=== PATIENT | female | born 1945 | race American Indian/Alaskan Native ===

== ENCOUNTER 2017-11-18 08:19 | Day surgery (SDC) | payer MEDICARE, OTHER ==
[~2017-11-18] VITALS: Ht 160 cm; Wt 82.1 kg
[~2017-11-18 08:19] MED LIST: AMLO10 PO; ASPI81EC PO; ATOR10; Amaryl2 MG PO; CEPH500 PO; CHOL10002 PO; CLOP75 PO; ENOX100I SC; ERGO400 PO; ESCI20 PO; FERSU220EL; FURO20 PO; GLYB5 PO; HYDACE5 PO; INSUASPI; LOSA50 PO; LOSHYD100 PO; METF500 PO; METO25ER PO; Micro-K10 MEQ PO; OMEP20ER PO; Omeprazole20 M1; PREG100; ROSU10TA PO; TOUJEO SOL300 UNIT/1; VERA180ERA PO; WARF7.5 PO
[2017-11-18 08:32] LABS: International Normalized Ratio 1.93; Prothrombin Time Results 20.5 Sec (9.7-11.5)
== END 2017-11-18 11:36 | disposition home or self-care (01) ==
LOC: ORSCSDS 08:19
PROVIDERS: Internal Medicine Gastroenterology
PROC: 0DBN8ZX Excision of Sigmoid Colon, Via Natural or Artificial Opening Endoscopic, Diagnostic (ICD-10-PCS; principal; 2017-11-18 10:30)
PROC: 0DBM8ZX Excision of Descending Colon, Via Natural or Artificial Opening Endoscopic, Diagnostic (ICD-10-PCS; principal; 2017-11-18 10:30)
PROC: 0DBP8ZX Excision of Rectum, Via Natural or Artificial Opening Endoscopic, Diagnostic (ICD-10-PCS; principal; 2017-11-18 10:30)
DX: R19.5 Other fecal abnormalities (principal); D12.4 Benign neoplasm of descending colon; D12.8 Benign neoplasm of rectum; K63.5 Polyp of colon; K57.30 Diverticulosis of large intestine without perforation or abscess without bleeding; D50.9 Iron deficiency anemia, unspecified; I10 Essential (primary) hypertension; E11.9 Type 2 diabetes mellitus without complications; Z95.2 Presence of prosthetic heart valve; G47.33 Obstructive sleep apnea (adult) (pediatric); F17.210 Nicotine dependence, cigarettes, uncomplicated; Z79.01 Long term (current) use of anticoagulants; Z79.82 Long term (current) use of aspirin; Z79.4 Long term (current) use of insulin; Z79.899 Other long term (current) drug therapy
CPT/HCPCS: 36415; 82947; 85610; 88305; J1980; J7120

== ENCOUNTER 2018-03-13 00:13 | Day surgery (SDC) | payer MEDICARE, OTHER | END 2018-03-13 14:10 | disposition home or self-care (01) | LOC: ATC 00:13 | DX: I63.132 Cerebral infarction due to embolism of left carotid artery (principal); Z95.2 Presence of prosthetic heart valve; Z79.01 Long term (current) use of anticoagulants; E11.9 Type 2 diabetes mellitus without complications; F17.200 Nicotine dependence, unspecified, uncomplicated | CPT/HCPCS: 96372; J1650 ==

== ENCOUNTER 2018-03-14 00:19 | Day surgery (SDC) | payer MEDICARE, OTHER | END 2018-03-14 13:40 | disposition home or self-care (01) | LOC: ATC 00:19 | DX: I63.132 Cerebral infarction due to embolism of left carotid artery (principal); Z95.2 Presence of prosthetic heart valve; F17.210 Nicotine dependence, cigarettes, uncomplicated | CPT/HCPCS: 96372; J1650 ==

== ENCOUNTER 2018-03-20 00:38 | Day surgery (SDC) | payer MEDICARE, OTHER ==
[2018-03-20 15:34] LABS: Hematocrit 38.9 % (33.0-51.0); Hemoglobin 12.5 g/dL (11.5-16.0); Mean Corpuscular HGB 29.4 pg (26.0-34.0); Mean Corpuscular HGB Conc 32.1 g/dL (31.5-36.5); Mean Corpuscular Volume 92 fL (80-100); Mean Platelet Volume 11.7 fL (9.1-12.4); Platelet Count 324 K/mm3 (150-400); RDW Coefficient Variation 13.4 % (11.7-14.2); RDW Standard Deviation 45.3 fL (35.1-46.3); Red Blood Cell Count 4.25 M/mm3 (3.80-5.20); White Blood Cell Count 9.86 K/mm3 (4.00-11.30)
[2018-03-20 15:49] LABS: International Normalized Ratio 1.02; Prothrombin Time Results 10.6 Sec (9.7-11.5)
[2018-03-20 16:00] LABS: Anion Gap 5 mmol/L (6-16); Blood Urea Nitrogen 19 mg/dL (8-24); Bun/Creatinine Ratio 23.7 (12.0-20.0); CO2, Blood 29 mmol/L (21-32); Chloride, Blood 103 mmol/L (98-108); Glomerular Filtration Rate >60 (60-); Glucose, Blood 367 mg/dL (70-99); Potassium, Blood 3.9 mmol/L (3.5-5.5); Sodium, Blood 137 mmol/L (136-145)
== END 2018-03-20 14:59 | disposition home or self-care (01) ==
LOC: ATC 00:38
DX: I63.132 Cerebral infarction due to embolism of left carotid artery (principal); Z95.2 Presence of prosthetic heart valve; F17.210 Nicotine dependence, cigarettes, uncomplicated; Z79.01 Long term (current) use of anticoagulants; I10 Essential (primary) hypertension
CPT/HCPCS: 36416; 80048; 85027; 85610; 96372; J1650

== ENCOUNTER 2018-03-21 00:19 | Day surgery (SDC) | payer MEDICARE, OTHER | END 2018-03-21 14:39 | disposition home or self-care (01) | LOC: ATC 00:19 | DX: I63.132 Cerebral infarction due to embolism of left carotid artery (principal); Z95.2 Presence of prosthetic heart valve; Z79.01 Long term (current) use of anticoagulants | CPT/HCPCS: 36416; 85610; 96372; J1650 ==

== ENCOUNTER 2018-03-22 00:32 | Day surgery (SDC) | payer MEDICARE, OTHER | END 2018-03-22 13:42 | disposition home or self-care (01) | LOC: ATC 00:32 | DX: I63.132 Cerebral infarction due to embolism of left carotid artery (principal); Z95.2 Presence of prosthetic heart valve | CPT/HCPCS: 36416; 85610; 96372; J1650 ==

== ENCOUNTER 2018-03-23 00:05 | Day surgery (SDC) | payer MEDICARE, OTHER ==
[2018-03-24] MEDS ORDERED: WARF6 PO (14:14)
== END 2018-03-23 13:51 | disposition home or self-care (01) ==
LOC: ATC 00:05
DX: I63.132 Cerebral infarction due to embolism of left carotid artery (principal); Z95.2 Presence of prosthetic heart valve
CPT/HCPCS: 36416; 85610; 96372; J1650

== ENCOUNTER 2018-03-24 00:09 | Day surgery (SDC) | payer MEDICARE, OTHER ==
[2018-03-24] MEDS ORDERED: WARF6 PO (14:14)
== END 2018-03-24 13:45 | disposition home or self-care (01) ==
LOC: ATC 00:09
DX: I63.132 Cerebral infarction due to embolism of left carotid artery (principal); Z95.2 Presence of prosthetic heart valve
CPT/HCPCS: 36416; 85610; 96372; J1650

== ENCOUNTER 2018-03-25 09:32 | Day surgery (SDC) | payer MEDICARE, OTHER ==
[~2018-03-25 09:32] MED LIST changes: +WARF6 PO
== END 2018-03-25 11:05 | disposition home or self-care (01) ==
LOC: ATC 09:32
DX: I63.132 Cerebral infarction due to embolism of left carotid artery (principal); Z95.2 Presence of prosthetic heart valve
CPT/HCPCS: 36416; 85610; 96372; J1650

== ENCOUNTER 2018-03-26 00:03 | Day surgery (SDC) | payer MEDICARE, OTHER | END 2018-03-26 11:02 | disposition home or self-care (01) | LOC: ATC 00:03 | DX: I63.132 Cerebral infarction due to embolism of left carotid artery (principal); Z95.2 Presence of prosthetic heart valve | CPT/HCPCS: 36416; 85610; 96372; J1650 ==

== ENCOUNTER 2018-03-28 00:09 | Day surgery (SDC) | payer MEDICARE, OTHER | END 2018-03-28 11:11 | disposition home or self-care (01) | LOC: ATC 00:09 | DX: I63.132 Cerebral infarction due to embolism of left carotid artery (principal); Z95.2 Presence of prosthetic heart valve | CPT/HCPCS: 36416; 85610; 96372; J1650 ==

== ENCOUNTER 2018-03-29 00:08 | Day surgery (SDC) | payer MEDICARE, OTHER | END 2018-03-29 11:40 | disposition home or self-care (01) | LOC: ATC 00:08 | DX: I63.132 Cerebral infarction due to embolism of left carotid artery (principal); Z95.2 Presence of prosthetic heart valve; F17.210 Nicotine dependence, cigarettes, uncomplicated | CPT/HCPCS: 36416; 85610; 96372; J1650 ==

== ENCOUNTER 2018-03-31 07:19 | Day surgery (SDC) | payer MEDICARE, OTHER | END 2018-03-31 11:11 | disposition home or self-care (01) | LOC: ATC 07:19 | DX: I63.132 Cerebral infarction due to embolism of left carotid artery (principal); K50.90 Crohn's disease, unspecified, without complications; Z95.2 Presence of prosthetic heart valve | CPT/HCPCS: 36416; 85610; 96372; J1650 ==

== ENCOUNTER 2018-04-01 00:27 | Day surgery (SDC) | payer MEDICARE, OTHER | END 2018-04-01 10:58 | disposition home or self-care (01) | LOC: ATC 00:27 | DX: I63.132 Cerebral infarction due to embolism of left carotid artery (principal); Z95.2 Presence of prosthetic heart valve; F17.210 Nicotine dependence, cigarettes, uncomplicated | CPT/HCPCS: 36416; 85610; 96372; J1650 ==

== ENCOUNTER 2018-04-02 00:25 | Day surgery (SDC) | payer MEDICARE, OTHER | END 2018-04-02 11:13 | disposition home or self-care (01) | LOC: ATC 00:25 | DX: I63.132 Cerebral infarction due to embolism of left carotid artery (principal); Z95.2 Presence of prosthetic heart valve | CPT/HCPCS: 36416; 85610; 96372; J1650 ==

== ENCOUNTER 2018-04-03 07:44 | Day surgery (SDC) | payer MEDICARE, OTHER | END 2018-04-03 14:04 | disposition home or self-care (01) | LOC: ATC 07:44 | DX: I63.132 Cerebral infarction due to embolism of left carotid artery (principal); Z95.2 Presence of prosthetic heart valve | CPT/HCPCS: 36416; 85610 ==

== ENCOUNTER → 2018-12-21 | Outpatient (CLI) | payer MEDICARE, OTHER ==
[2018-12-21 10:16] LABS: BASOPHILS ABSOLUTE AUTO 0.06 K/mm3 (0.00-0.23); BASOPHILS PERCENT AUTO 1 % (0-2); EOSINOPHILS ABSOLUTE AUTO 0.25 K/mm3 (0.00-0.68); EOSINOPHILS PERCENT AUTO 3 % (0-6); Hematocrit 30.7 % (33.0-51.0); Hemoglobin 8.8 g/dL (11.5-16.0); IMMATURE GRAN ABSOLUTE AUTO 0.04 K/mm3 (0.00-0.10); IMMATURE GRAN PERCENT AUTO 0 % (0-1); LYMPHOCYTES PERCENT AUTO 11 % (21-46); MONOCYTES ABSOLUTE AUTO 0.76 K/mm3 (0.16-1.47); MONOCYTES PERCENT AUTO 8 % (4-13); Mean Corpuscular HGB 20.2 pg (26.0-34.0); Mean Corpuscular HGB Conc 28.7 g/dL (31.5-36.5); Mean Corpuscular Volume 70 fL (80-100); NEUTROPHILS ABSOLUTE AUTO 7.19 K/mm3 (1.96-9.15); NEUTROPHILS PERCENT AUTO 77 % (41-73); NRBC ABSOLUTE 0.02 K/mm3 (0.00-0.02); NRBC Auto 0.2 /100 WBC (0.0-0.2); Platelet Count 414 K/mm3 (150-400); RDW Coefficient Variation 18.6 % (11.7-14.2); RDW Standard Deviation 46.1 fL (35.1-46.3); Red Blood Cell Count 4.36 M/mm3 (3.80-5.20)
[2018-12-21 10:31] LABS: Alanine Aminotransfer (ALT/SGP 33 U/L (12-78); Albumin, Blood 3.1 g/dL (3.4-5.0); Albumin/Globulin Ratio 0.7 (0.8-1.8); Alk Phos 96 U/L (40-126); Anion Gap 9 mmol/L (6-16); Aspartate Aminotrans (AST/SGOT 38 U/L (12-37); Bilirubin, Total 0.4 mg/dL (0.1-1.0); Blood Urea Nitrogen 14 mg/dL (8-24); Bun/Creatinine Ratio 15.6 (12.0-20.0); CO2, Blood 26 mmol/L (21-32); Calcium, Blood 8.4 mg/dL (8.5-10.1); Chloride, Blood 102 mmol/L (98-108); Globulin, Blood 4.4 g/dL (2.2-4.0); Glomerular Filtration Rate >60 (60-); Glucose, Blood 240 mg/dL (70-99); Potassium, Blood 4.4 mmol/L (3.5-5.5); Sodium, Blood 137 mmol/L (136-145); Total Protein, Blood 7.5 g/dL (6.4-8.2)
[2018-12-24 11:42] LABS: Percent Saturation 2.7 % (15.0-50.0)
== END | disposition home or self-care (01) ==
LOC: LAB EV 10:12 → LAB SHORT 10:12
PROVIDERS: General Practice
DX: E11.65 Type 2 diabetes mellitus with hyperglycemia (principal); D64.9 Anemia, unspecified
CPT/HCPCS: 80053; 82728; 83036; 83540; 83550; 85025

== ENCOUNTER → 2019-02-12 | Outpatient (CLI) | payer MEDICARE, OTHER ==
[2019-02-17 06:14] LABS: Stool Occult Bld Immuno 1 Positive (NEGATIVE)
== END | disposition home or self-care (01) ==
LOC: LAB SHORT 08:05 → LAB 08:05
PROVIDERS: Internal Medicine
DX: D50.9 Iron deficiency anemia, unspecified (principal)
CPT/HCPCS: 82274

== ENCOUNTER 2020-03-31 18:11 | Emergency (ER) | payer MEDICARE, OTHER ==
[~2020-03-31] VITALS: Ht 167.6 cm; Wt 90.7 kg
[2020-03-31 19:05] LABS: BASOPHILS ABSOLUTE AUTO 0.05 K/mm3 (0.00-0.23); BASOPHILS PERCENT AUTO 1 % (0-2); EOSINOPHILS ABSOLUTE AUTO 0.15 K/mm3 (0.00-0.68); EOSINOPHILS PERCENT AUTO 2 % (0-6); Hemoglobin 12.7 g/dL (11.5-16.0); IMMATURE GRAN ABSOLUTE AUTO 0.02 K/mm3 (0.00-0.10); IMMATURE GRAN PERCENT AUTO 0 % (0-1); LYMPHOCYTES ABSOLUTE AUTO 1.36 K/mm3 (0.84-5.20); LYMPHOCYTES PERCENT AUTO 18 % (21-46); MONOCYTES ABSOLUTE AUTO 0.62 K/mm3 (0.16-1.47); MONOCYTES PERCENT AUTO 8 % (4-13); Mean Corpuscular HGB 28.1 pg (26.0-34.0); Mean Corpuscular HGB Conc 32.6 g/dL (31.5-36.5); Mean Corpuscular Volume 86 fL (80-100); Mean Platelet Volume 11.1 fL (9.1-12.4); NEUTROPHILS ABSOLUTE AUTO 5.35 K/mm3 (1.96-9.15); NEUTROPHILS PERCENT AUTO 71 % (41-73); Platelet Count 307 K/mm3 (150-400); RDW Standard Deviation 44.2 fL (35.1-46.3); Red Blood Cell Count 4.52 M/mm3 (3.80-5.20); White Blood Cell Count 7.55 K/mm3 (4.00-11.30)
[2020-03-31 19:27] LABS: International Normalized Ratio 3.37; Prothrombin Time Results 33.7 Sec (9.7-11.5)
[2020-03-31 19:40] LABS: Alanine Aminotransfer (ALT/SGP 42 U/L (12-78); Albumin, Blood 3.1 g/dL (3.4-5.0); Albumin/Globulin Ratio 0.8 (0.8-1.8); Alk Phos 100 U/L (50-136); Anion Gap 6 mmol/L (6-16); Aspartate Aminotrans (AST/SGOT 31 U/L (12-37); Bilirubin, Total 0.3 mg/dL (0.1-1.0); Blood Urea Nitrogen 19 mg/dL (8-24); Bun/Creatinine Ratio 25.2 (12.0-20.0); CO2, Blood 26 mmol/L (21-32); Chloride, Blood 105 mmol/L (98-108); Creatinine, Blood 0.76 mg/dL (0.40-1.00); Globulin, Blood 3.9 g/dL (2.2-4.0); Glomerular Filtration Rate >60 (60-); Glucose, Blood 341 mg/dL (70-99); Potassium, Blood 4.1 mmol/L (3.5-5.5); Sodium, Blood 137 mmol/L (136-145)
== END 2020-03-31 20:50 | disposition home or self-care (01) ==
LOC: ER 18:11
PROVIDERS: Emergency Medicine
DX: G45.9 Transient cerebral ischemic attack, unspecified (principal); I25.10 Atherosclerotic heart disease of native coronary artery without angina pectoris; E11.51 Type 2 diabetes mellitus with diabetic peripheral angiopathy without gangrene; I73.9 Peripheral vascular disease, unspecified; J44.9 Chronic obstructive pulmonary disease, unspecified; I10 Essential (primary) hypertension; Z88.0 Allergy status to penicillin; Z79.01 Long term (current) use of anticoagulants; Z79.82 Long term (current) use of aspirin; Z79.899 Other long term (current) drug therapy; Z79.4 Long term (current) use of insulin; Z87.891 Personal history of nicotine dependence
CPT/HCPCS: 70450; 80053; 85025; 85610; 93005; 93010; 99285-25

== ENCOUNTER 2020-04-01 20:31 | Emergency (ER) | payer MEDICARE, OTHER ==
[~2020-04-01] VITALS: Ht 160 cm; Wt 73.9 kg
[2020-04-01 21:17] LABS: BASOPHILS ABSOLUTE AUTO 0.07 K/mm3 (0.00-0.23); BASOPHILS PERCENT AUTO 1 % (0-2); EOSINOPHILS ABSOLUTE AUTO 0.24 K/mm3 (0.00-0.68); EOSINOPHILS PERCENT AUTO 3 % (0-6); Hematocrit 44.6 % (33.0-51.0); Hemoglobin 14.1 g/dL (11.5-16.0); IMMATURE GRAN ABSOLUTE AUTO 0.03 K/mm3 (0.00-0.10); IMMATURE GRAN PERCENT AUTO 0 % (0-1); LYMPHOCYTES ABSOLUTE AUTO 1.67 K/mm3 (0.84-5.20); LYMPHOCYTES PERCENT AUTO 20 % (21-46); MONOCYTES ABSOLUTE AUTO 0.73 K/mm3 (0.16-1.47); MONOCYTES PERCENT AUTO 9 % (4-13); Mean Corpuscular HGB 27.4 pg (26.0-34.0); Mean Corpuscular HGB Conc 31.6 g/dL (31.5-36.5); Mean Corpuscular Volume 87 fL (80-100); NEUTROPHILS ABSOLUTE AUTO 5.72 K/mm3 (1.96-9.15); NEUTROPHILS PERCENT AUTO 68 % (41-73); Platelet Count 338 K/mm3 (150-400); RDW Coefficient Variation 13.9 % (11.7-14.2); RDW Standard Deviation 44.3 fL (35.1-46.3); Red Blood Cell Count 5.14 M/mm3 (3.80-5.20); White Blood Cell Count 8.46 K/mm3 (4.00-11.30)
[2020-04-01 21:31] LABS: International Normalized Ratio 3.07; Prothrombin Time Results 30.8 Sec (9.7-11.5)
[2020-04-01 21:42] LABS: Alanine Aminotransfer (ALT/SGP 39 U/L (12-78); Albumin, Blood 3.8 g/dL (3.4-5.0); Albumin/Globulin Ratio 0.9 (0.8-1.8); Alk Phos 95 U/L (50-136); Anion Gap 6 mmol/L (6-16); Aspartate Aminotrans (AST/SGOT 22 U/L (12-37); Bilirubin, Total 0.4 mg/dL (0.1-1.0); Blood Urea Nitrogen 19 mg/dL (8-24); Bun/Creatinine Ratio 19.8 (12.0-20.0); CO2, Blood 25 mmol/L (21-32); Calcium, Blood 9.1 mg/dL (8.5-10.1); Chloride, Blood 105 mmol/L (98-108); Creatinine, Blood 0.96 mg/dL (0.40-1.00); Globulin, Blood 4.2 g/dL (2.2-4.0); Glomerular Filtration Rate >60 (60-); Glucose, Blood 260 mg/dL (70-99); Potassium, Blood 4.1 mmol/L (3.5-5.5); Sodium, Blood 136 mmol/L (136-145)
== END 2020-04-01 23:07 | disposition home or self-care (01) ==
LOC: ER 20:31
PROVIDERS: Physician Assistant
DX: G45.9 Transient cerebral ischemic attack, unspecified (principal); Z88.0 Allergy status to penicillin; Z79.82 Long term (current) use of aspirin; Z79.01 Long term (current) use of anticoagulants; Z79.899 Other long term (current) drug therapy; Z79.4 Long term (current) use of insulin; I25.10 Atherosclerotic heart disease of native coronary artery without angina pectoris; E11.51 Type 2 diabetes mellitus with diabetic peripheral angiopathy without gangrene; I73.9 Peripheral vascular disease, unspecified; E11.40 Type 2 diabetes mellitus with diabetic neuropathy, unspecified; J44.9 Chronic obstructive pulmonary disease, unspecified; I10 Essential (primary) hypertension; F17.200 Nicotine dependence, unspecified, uncomplicated
CPT/HCPCS: 36415; 70496; 70498; 80053; 85025; 85610; 93005; 93010; 99284-25; Q9967

== ENCOUNTER 2020-09-15 20:07 | Inpatient (IN) | payer MEDICARE, OTHER ==
[~2020-09-15] VITALS: Ht 160 cm; Wt 47.5 kg
[~2020-09-15 20:07] MED LIST changes: +ACTOS30 MG PO; +ARNUITY ELLIPT50 MCG IH; +BISA10S PR; +CIPR500 PO; +DULCOLAX400 MG/5 M PO; +FAMO20 PO; +FEROSUL325 M1 PO; +FLUT1DIS5 INH; +FLUTICASONE-SA1 EAC1 INH; +GLIP10 PO; +HUMULIN R100 UNIT/2 SC; +LANTUS SOL100 UNIT/1 SC; -METF500 PO; +METF500C PO; +METOPROLOL TART25 MG PO; +MIRALAX17 GM PO; +Potassium Chlo20 ME1 PO; +ROSU5 PO; +SENNA PLUS PO; +TEMA15 PO; +TRAM50 PO; +Vitamin D2000 UNIT PO
[2020-09-15 21:01] LABS: BASOPHILS ABSOLUTE AUTO 0.07 K/mm3 (0.00-0.23); BASOPHILS PERCENT AUTO 0 % (0-2); EOSINOPHILS ABSOLUTE AUTO 0.01 K/mm3 (0.00-0.68); EOSINOPHILS PERCENT AUTO 0 % (0-6); Hemoglobin 12.9 g/dL (11.5-16.0); IMMATURE GRAN PERCENT AUTO 1 % (0-1); LYMPHOCYTES ABSOLUTE AUTO 0.47 K/mm3 (0.84-5.20); LYMPHOCYTES PERCENT AUTO 2 % (21-46); MONOCYTES ABSOLUTE AUTO 0.61 K/mm3 (0.16-1.47); MONOCYTES PERCENT AUTO 3 % (4-13); Mean Corpuscular HGB 29.7 pg (26.0-34.0); Mean Corpuscular HGB Conc 33.1 g/dL (31.5-36.5); Mean Corpuscular Volume 90 fL (80-100); Mean Platelet Volume 11.1 fL (9.1-12.4); NEUTROPHILS ABSOLUTE AUTO 18.65 K/mm3 (1.96-9.15); NEUTROPHILS PERCENT AUTO 94 % (41-73); Platelet Count 353 K/mm3 (150-400); RDW Coefficient Variation 12.7 % (11.7-14.2); Red Blood Cell Count 4.35 M/mm3 (3.80-5.20); White Blood Cell Count 19.91 K/mm3 (4.00-11.30)
[2020-09-15 21:15] LABS: Alanine Aminotransfer (ALT/SGP 31 U/L (12-78); Albumin, Blood 3.6 g/dL (3.4-5.0); Albumin/Globulin Ratio 0.8 (0.8-1.8); Alk Phos 79 U/L (50-136); Anion Gap 6 mmol/L (6-16); Aspartate Aminotrans (AST/SGOT 26 U/L (12-37); Bilirubin, Total 0.4 mg/dL (0.1-1.0); Blood Urea Nitrogen 23 mg/dL (8-24); Bun/Creatinine Ratio 31.5 (12.0-20.0); CO2, Blood 29 mmol/L (21-32); Calcium, Blood 9.4 mg/dL (8.5-10.1); Chloride, Blood 104 mmol/L (98-108); Creatinine, Blood 0.73 mg/dL (0.40-1.00); Globulin, Blood 4.4 g/dL (2.2-4.0); Glomerular Filtration Rate >60 (60-); Glucose, Blood 147 mg/dL (70-99); Potassium, Blood 3.9 mmol/L (3.5-5.5); Sodium, Blood 139 mmol/L (136-145)
[2020-09-15 21:21] LABS: Source, Urine Clean Catch
[2020-09-15 21:35] LABS: Appearance, Urine Clear (Clear); Bilirubin, Urine Neg (Neg); Blood, Urine Neg (Neg); Color, Urine Yellow (P-Yellow); Glucose Qualitative, Urine Neg (Neg); Ketones, Urine 1+ (Neg); Leukocyte Esterase, Urine Neg (Neg); Nitrite, Urine Neg (Neg); Protein, Urine 2+ (Neg); Urobilinogen, Urine NORM (Normal)
[2020-09-15 21:37] LABS: Prothrombin Time Results 45.4 Sec (9.7-11.5)
[2020-09-15 21:38] LABS: International Normalized Ratio 4.63
[2020-09-15 21:46] LABS: Amorphous Light (0-Heavy); Bacteria Few /hpf; Red Blood Cells, Urine Not Seen /hpf (0-2); Squamous Epithelial Cells Few /hpf (Few); White Blood Cells, Urine Rare /hpf (0-5)
[2020-09-16] MEDS ORDERED: WARF6 PO (02:09)
[2020-09-16] MEDS ORDERED: ATOR20 PO (02:12)
[2020-09-16 03:41] LABS: Influenza A, PCR Negative (NEGATIVE); Influenza B, PCR Negative (NEGATIVE); Resp Syncytial Virus, PCR Negative (NEGATIVE); SARS-Cov-2 (COVID-19) PCR, MMC Negative (NEGATIVE)
[2020-09-16 05:36] LABS: BASOPHILS ABSOLUTE AUTO 0.05 K/mm3 (0.00-0.23); BASOPHILS PERCENT AUTO 0 % (0-2); EOSINOPHILS ABSOLUTE AUTO 0.01 K/mm3 (0.00-0.68); EOSINOPHILS PERCENT AUTO 0 % (0-6); Hematocrit 39.3 % (33.0-51.0); Hemoglobin 12.8 g/dL (11.5-16.0); IMMATURE GRAN ABSOLUTE AUTO 0.05 K/mm3 (0.00-0.10); IMMATURE GRAN PERCENT AUTO 0 % (0-1); LYMPHOCYTES ABSOLUTE AUTO 0.75 K/mm3 (0.84-5.20); LYMPHOCYTES PERCENT AUTO 5 % (21-46); MONOCYTES ABSOLUTE AUTO 1.26 K/mm3 (0.16-1.47); MONOCYTES PERCENT AUTO 9 % (4-13); Mean Corpuscular HGB 29.2 pg (26.0-34.0); Mean Corpuscular HGB Conc 32.6 g/dL (31.5-36.5); Mean Corpuscular Volume 90 fL (80-100); Mean Platelet Volume 10.6 fL (9.1-12.4); NEUTROPHILS PERCENT AUTO 86 % (41-73); Platelet Count 373 K/mm3 (150-400); RDW Coefficient Variation 12.7 % (11.7-14.2); RDW Standard Deviation 42.3 fL (35.1-46.3); Red Blood Cell Count 4.39 M/mm3 (3.80-5.20); White Blood Cell Count 14.82 K/mm3 (4.00-11.30)
[2020-09-16 06:08] LABS: Prothrombin Time Results 42.5 Sec (9.7-11.5)
[2020-09-16 06:10] LABS: Anion Gap 6 mmol/L (6-16); Blood Urea Nitrogen 23 mg/dL (8-24); Bun/Creatinine Ratio 31.1 (12.0-20.0); CO2, Blood 29 mmol/L (21-32); Chloride, Blood 105 mmol/L (98-108); Creatinine, Blood 0.74 mg/dL (0.40-1.00); Glomerular Filtration Rate >60 (60-); Glucose, Blood 140 mg/dL (70-99); International Normalized Ratio 4.31; Sodium, Blood 140 mmol/L (136-145)
--- NOTE | 2020-09-16 06:21 | NUR ---
FLATWORK PRESSER SUMMARY PT ADMITTED FROM ED. A&OX4, ABLE TO MAKE NEEDS KNOWN. PLEASANT AND COOPERATIVE TO CARE. PT HAS POOR VISION BILATERALLY. PT 2P MAX ASSIST. CONTINENT OF B/B. PT ABLE TO TURN TO SIDES INDEPENDENTLY. PT ONLY C/O MINIMAL PAIN WHEN TRANSFERRED TO BED FROM [facility]. NO OTHER COMPLAINTS OR ISSUES NOTED REST OF SHIFT. CURRENTLY CALM AND RESTED IN BED AT THIS TIME. NO C/O CP, SOB, OR N&V. BED AT LOWEST POSITION. CALL LIGHT WITHIN REACH, PT EDUCATED ON USE OF CALL LIGHT. WILL CONT TO MONITOR FOR CHANGES.
[2020-09-16] MEDS ORDERED: MINERAL OIL135 M1 PR (11:11)
--- NOTE | 2020-09-16 11:19 | NUR ---
VERIFIED DNR WITH DELGADO SALTER RN, PLACED BAND ON RIGHT WRIST
--- NOTE | 2020-09-16 17:26 | NUR ---
SHIFT SUMMARY PATIENT ALERT TO SELF, SITUATION, AND FAMILY THIS SHIFT. PATIENT SLEEPING THROUGH THIS SHIFT, RELUCTANT TO MOVE DUE TO PAIN IN HER LOWER BACK UPON MOVING. PATIENT MEDICATED THIS AM FOR LOWER BACK PAIN THEN AGAIN THIS AFTERNOON FOR LOW ABDOMINAL PAIN. PATIENT STATES PAIN IS NOT PRESENT IN HER LOWER BACK UNLESS SHE MOVES. PATIENT COOPERATIVE WITH CARE. PATIENT HAS DIFFICULTY ANSWERING THE PHONE OR HANGING UP WITHOUT ASSISTANCE. PATIENT CURRENTLY LAYING IN BED SLEEPING.
[2020-09-17 06:05] LABS: BASOPHILS ABSOLUTE AUTO 0.05 K/mm3 (0.00-0.23); BASOPHILS PERCENT AUTO 1 % (0-2); EOSINOPHILS ABSOLUTE AUTO 0.16 K/mm3 (0.00-0.68); EOSINOPHILS PERCENT AUTO 2 % (0-6); Hematocrit 38.9 % (33.0-51.0); Hemoglobin 12.6 g/dL (11.5-16.0); IMMATURE GRAN ABSOLUTE AUTO 0.03 K/mm3 (0.00-0.10); IMMATURE GRAN PERCENT AUTO 0 % (0-1); LYMPHOCYTES ABSOLUTE AUTO 1.23 K/mm3 (0.84-5.20); LYMPHOCYTES PERCENT AUTO 12 % (21-46); MONOCYTES ABSOLUTE AUTO 0.79 K/mm3 (0.16-1.47); MONOCYTES PERCENT AUTO 8 % (4-13); Mean Corpuscular HGB 29.3 pg (26.0-34.0); Mean Corpuscular HGB Conc 32.4 g/dL (31.5-36.5); Mean Corpuscular Volume 91 fL (80-100); Mean Platelet Volume 11.3 fL (9.1-12.4); NEUTROPHILS ABSOLUTE AUTO 7.65 K/mm3 (1.96-9.15); NEUTROPHILS PERCENT AUTO 77 % (41-73); Platelet Count 371 K/mm3 (150-400); RDW Coefficient Variation 12.9 % (11.7-14.2); RDW Standard Deviation 42.9 fL (35.1-46.3); White Blood Cell Count 9.91 K/mm3 (4.00-11.30)
--- NOTE | 2020-09-17 06:31 | NUR ---
SHIFT SUMMARY PT IS A 75 Y/O FEMALE, ADMITTED FOR AN L1 FX. PT ALSO REPORTED RLQ ABD PAIN DURING THE NIGHT, AND WAS MEDICATED X2 WITH PRN TRAMADOL FOR PAIN. PT MOVEMENT IS EXTREMELY PAINFUL, AND PT REFUSES TO TURN OVER OR STAND UP AND REMAINS ON HER L SIDE. NO C/O NAUSEA OR SOB. VITAL SIGNS STABLE. NO ACUTE CHANGES IN PT CONDITION NOTED. PT WAS UNABLE TO RECEIVE ABD US, AND PER REQUEST OF THREAD SEPARATOR HAS BEEN NPO SINCE MIDNIGHT BEFORE HER US THIS AM. NO OTHER ACUTE CHANGES IN PT CONDITION NOTED. WILL CONTINUE TO MONITOR AND TREAT PER EMAR UNTIL HAND OFF TO DAY SHIFT RN.
[2020-09-17 06:37] LABS: Anion Gap 5 mmol/L (6-16); Blood Urea Nitrogen 29 mg/dL (8-24); Bun/Creatinine Ratio 40.1 (12.0-20.0); CHOL/HDL RATIO 3.1; CO2, Blood 31 mmol/L (21-32); Calcium, Blood 9.6 mg/dL (8.5-10.1); Chloride, Blood 104 mmol/L (98-108); Cholesterol 138 mg/dL (50-200); Creatinine, Blood 0.72 mg/dL (0.40-1.00); Glomerular Filtration Rate >60 (60-); Glucose, Blood 138 mg/dL (70-99); HDL Cholesterol 44 mg/dL (>39); LDL/HDL RATIO 1.5; Low Density Lipoprotein Chol 67 mg/dL (0-110); Potassium, Blood 4.1 mmol/L (3.5-5.5); Sodium, Blood 140 mmol/L (136-145); Triglycerides 133 mg/dL (30-160); Very Low Density Lipoprot Chol 26 mg/dL (6-32)
[2020-09-17 09:32] LABS: Prothrombin Time Results 41.2 Sec (9.7-11.5)
[2020-09-17 09:33] LABS: International Normalized Ratio 4.17
--- NOTE | 2020-09-17 17:02 | NUR ---
SHIFT SUMMARY PATIENT ALERT TO SELF, FAMILY, AND SITUATION THIS SHIFT. PATIENT IS OCCASIONALLY FORGETFUL. PATIENT HAD AN ABDOMINAL ULTRASOUND AND CTA OF THE HEAD AND NECK THIS SHIFT. PATIENT REMAINS PAINFUL UPON MOVEMENT, BUT TOLERATES IT MUCH BETTER THAN PREVIOUS DAY. PATIENT ALSO MORE ALERT AND INTERACTIVE THIS SHIFT THAN PREVIOUS DAY. PATIENT ATE A SMALL AMOUNT OF PUDDING AROUND LUNCH TIME, IMPROVED OVER NO INTAKE FROM PREVIOUS DAY. PATIENT STATES THAT SHE IS READY TO GO HOME, EVEN THOUGH SHE REMAINS PAINFUL. PATIENT IS BEDBOUND AT THIS TIME AND UNABLE TO SIT UP. PATIENT ROLLS FROM SIDE TO SIDE WITH MINIMAL ASSISTANCE. PATIENT CURRENTLY LAYING IN BED RESTING.
[2020-09-18 04:48] LABS: BASOPHILS ABSOLUTE AUTO 0.07 K/mm3 (0.00-0.23); BASOPHILS PERCENT AUTO 1 % (0-2); EOSINOPHILS PERCENT AUTO 3 % (0-6); Hematocrit 37.8 % (33.0-51.0); Hemoglobin 12.2 g/dL (11.5-16.0); IMMATURE GRAN ABSOLUTE AUTO 0.03 K/mm3 (0.00-0.10); IMMATURE GRAN PERCENT AUTO 0 % (0-1); LYMPHOCYTES ABSOLUTE AUTO 1.13 K/mm3 (0.84-5.20); LYMPHOCYTES PERCENT AUTO 10 % (21-46); MONOCYTES ABSOLUTE AUTO 1.03 K/mm3 (0.16-1.47); MONOCYTES PERCENT AUTO 9 % (4-13); Mean Corpuscular HGB 29.1 pg (26.0-34.0); Mean Corpuscular HGB Conc 32.3 g/dL (31.5-36.5); Mean Corpuscular Volume 90 fL (80-100); Mean Platelet Volume 10.2 fL (9.1-12.4); NEUTROPHILS ABSOLUTE AUTO 8.56 K/mm3 (1.96-9.15); NEUTROPHILS PERCENT AUTO 77 % (41-73); Platelet Count 355 K/mm3 (150-400); RDW Coefficient Variation 12.6 % (11.7-14.2); RDW Standard Deviation 41.1 fL (35.1-46.3); Red Blood Cell Count 4.19 M/mm3 (3.80-5.20); White Blood Cell Count 11.12 K/mm3 (4.00-11.30)
[2020-09-18 05:01] LABS: International Normalized Ratio 3.87; Prothrombin Time Results 38.4 Sec (9.7-11.5)
[2020-09-18 05:06] LABS: Anion Gap 4 mmol/L (6-16); Blood Urea Nitrogen 31 mg/dL (8-24); Bun/Creatinine Ratio 37.6 (12.0-20.0); CO2, Blood 32 mmol/L (21-32); Calcium, Blood 9.3 mg/dL (8.5-10.1); Chloride, Blood 103 mmol/L (98-108); Creatinine, Blood 0.83 mg/dL (0.40-1.00); Glomerular Filtration Rate >60 (60-); Glucose, Blood 113 mg/dL (70-99); Potassium, Blood 4.1 mmol/L (3.5-5.5); Sodium, Blood 139 mmol/L (136-145)
--- NOTE | 2020-09-18 05:44 | NUR ---
SHIFT SUMMARY PT IS A 75 Y/O FEMALE, ADMITTED FOR AN L1 FX POST FALL. SHE IS BASELINE A&O X 2, THOUGH SHE HAD AN EPISODE OF ACUTE CONFUSION DURING THE NIGHT AND DID NOT REMEMBER THE DATE, THE LOCATION OR WHY SHE HAD BEEN ADMITTED. PT WAS MEDICATED FOR PAIN AT HS WITH PRN TRAMADOL. NO C/O OF ACUTE NAUSEA OR SOB. VITAL SIGNS STABLE. PT SLEPT WELL THROUGH THE NIGHT. NO OTHER CHANGES IN PT CONDITION NOTED. WILL CONTINUE TO MONITOR AND TREAT PER EMAR UNTIL HAND OFF TO DAY SHIFT RN.
[2020-09-18 14:32] LABS: Influenza A, PCR Negative (NEGATIVE); Influenza B, PCR Negative (NEGATIVE); Resp Syncytial Virus, PCR Negative (NEGATIVE); SARS-Cov-2 (COVID-19) PCR, MMC Negative (NEGATIVE)
--- NOTE | 2020-09-18 15:23 | NUR ---
SUMMARY PT CONTINUES TO STATE BACK PAIN w MOVEMENT, SHE IS RELUCTANT TO TURN IN BED, RELUCTANT TO GET OOB THIS AM. PRN TYLENOL & ULTRAM GIVEN FOR PAIN CONTROL. SHE ATTEMPTED OOB FOR LUNCH HOWEVER ONCE SITTING UP ON BEDSIDE SHE STATE DIZZINESS, REQUEST BACK TO BED. THIS AFTERNOON SHE WANTED TO GET OOB & LEAVE HOSP, SHE WAS ABLE SIT UP ON BEDSIDE, STAND w FWW. SHE TOOK ABOUT 4 SM STEPS & AGAIN BECAME DIZZY, REQUIRE ASSIST BACK TO BED. SHE HAS DEMONSTRATED CONFUSION T/O THE DAY, HER SON WAS IN TO VISIT, STATE THIS HAS BEEN ONGOING TO THE POINT THAT PT WILL NO LONGER BE ABLE TO LIVE ON HER OWN, STATE HE IS ARRANGING PLACEMENT @ [facility]. DR DAVALOS STATE PT WILL TRANSFER TO [facility] FOR REHAB WHEN APPROP. HER NEURO CHECKS HAVE BEEN UNCHANGED T/O DAY, HX CVA/TIA'S. VSS.
[2020-09-19 05:54] LABS: International Normalized Ratio 2.71; Prothrombin Time Results 27.4 Sec (9.7-11.5)
--- NOTE | 2020-09-19 06:10 | NUR ---
SHIFT SUMMARY PT IS A 75 Y/O FEMALE, ADMITTED FOR AN L1 FX AFTER A GLF. PT HAS BEEN VERY CONFUSED TONIGHT, A&O X SELF & FAMILY ONLY, CALLING OUT TO FAMILY MEMBERS DURING THE NIGHT AND DIFFICULT TO REORIENT. PT WAS MEDICATED FOR BACK PAIN AT HS WITH PRN TRAMADOL. NO C/O NAUSEA OR SOB. PT SLEP WELL OFF AND ON DURING THE NIGHT. VITAL SIGNS STABLE. NO ACUTE CHANGES IN PT CONDITION NOTED DURING THE NIGHT. WILL CONTINUE TO MONITOR AND TREAT PER EMAR UNTIL HAND OFF TO DAY SHIFT RN.
--- NOTE | 2020-09-19 13:47 | NUR ---
Review of patient with nursing. Pt Resting in bed rigid and guarding and grimacing with pain. Review of chart and called patients son. Consult requested to discuss prognosis and goals of care. Review of patient with her son Matt Broussard [phone]. The past few months pt less ambulatory stating her nerve pain is worse in her feet. Pt not wanting to eat and having poor tolerance of food. Pt falling more. Son also stated a steady cognative decline. Pt hearing is still intact but she has told her family she cant see anymore. Pt has severe PVD and hypertension, multiple cva's. Now has a lumbar fracture. Son stated that he and his sister have been struggling with how to care for their mother they feel she is suffering. After careful review they feel comfort measures and hospice is the best choice for her care. Notifed director long term care and physician and orders placed. Family put a deposit on [facility] called and updated the nurse at [facility] of hospice plan. pt kps score is 30%.
--- NOTE | 2020-09-19 18:57 | NUR ---
SHIFT SUMMARY ESCOBAR WAS CHANGED TO COMFORT CARE TODAY. GOT HER UP TO BSC A FEW TIMES AND HER BACK WAS VERY PAINFUL. UPON CHANGE TO CC, PLACED HAMILTON W/O ISSUES. PATENT AND DRAINING. MEDICAL TRANSPORT SPECIALIST SAW PRIOR TO CC CHANGE, RECS MECH SOFT. PT HAS VERY POOR PO INTAKE DESPITE PREFERENCES BEING PROVIDED AND MEAL ASSISTANCE.
--- NOTE | 2020-09-19 19:00 | NUR ---
COMFORT CARE RECIEVED BESIDE REPORT. APPEARS TO BE RESTING WITH NO ACUTE NEEDS AT THIS TIME. REPOSITIONED TO R SIDE. BED IN LOWEST POSITION. CALL LIGHT AND BELONGINGS WITHIN REACH. TM.
--- NOTE | 2020-09-19 21:50 | NUR ---
COMFORT CARE COMPLETE BED BATH AND LINEN CHANGE. ATTEMPTED TO REPOSITION FROM R SIDE PATIENT REFUSED. REFUSED NIGHT TIME MEDICATIONS. HAMILTON SECURED AND DRAINING TO GRAVITY. NO ACUTE NEEDS AT THIS TIME. BED REMAINS IN LOWEST POSITION. CALL LIGHT AND BELONGINGS WITHIN REACH.
--- NOTE | 2020-09-19 23:45 | NUR ---
COMFORT CARE APPEARS TO BE RESTING. NO ACUTE NEEDS AT THIS TIME. BED IN LOWEST POSITION; ALARM ON. CALL LIGHT AND BELONGINGS WITHIN REACH. TM.
--- NOTE | 2020-09-20 01:40 | NUR ---
COMFORT CARE APPEARS TO BE RESTING. DOES NOT TOLERATE BEING REPOSITIONED. NO ACUTE NEEDS AT THIS TIME. HAMILTON REMAINS SECURED AND DRAINING TO GRAVITY. BED IN LOWEST POSITION; ALARM ON. CALL LIGHT AND BELONGINGS WITHIN REACH. WCTM.
--- NOTE | 2020-09-20 03:50 | NUR ---
COMFORT CARE APPEARS TO BED RESTING. NO ACUTE CHANGES NOTED AT THIS TIME. BED REMAINS IN LOWEST POSITION; ALARM ON. CALL LIGHT AND BELONGINGS WITHIN REACH. TM.
--- NOTE | 2020-09-20 04:59 | NUR ---
SHIFT SUMMARY ALERT, ABLE TO MAKE NEEDS KNOWN. NOTED CONFUSION, DIFFICULT TO RE-DIRECT. DOES NOT UNDERSTAND WHERE SHE IS. REFUSED TO REPOSITION T/O NIGHT. REFUSED NIGHT TIME MEDICATIONS. STATED NO PAIN/DISCOMFORT. APPEARED TO REST MUCH OF THE NIGHT. HAMILTON REMAINS SECURED AND DRAINING TO GRAVITY. NO OTHER ACUTE CHANGES NOTED. BED IN LOWEST POSITION; CALL LIGHT AND BELONGINGS WITHIN REACH. WCTM. REPORT TO ONCOMING RN.
--- NOTE | 2020-09-20 05:48 | NUR ---
COMFORT CARE NO ACUTE NEEDS AT THIS TIME. NO C/O PAIN/DISCOMFORT. HAMILTON SECURED AND DRAINING TO GRAVITY. BED REMAINS IN LOWEST POSITION. CALL LIGHT AND BELONGINGS WITHIN REACH. WCTM.
--- NOTE | 2020-09-20 07:43 | NUR ---
ASSUMED CARE OF PT- BEDSIDE REPORT COMPLETED WITH NIGHT RN. PER REPORT PT ON COMFORT CARE SHE DECLINED HER PO MEDICATIONS LAST NIGHT. PT ALERT FOR SHIFT CHANGE AND REPOSITIONED THEN IS NOW APPEARS TO BE RESTING COMFORTABLY.
--- NOTE | 2020-09-20 08:06 | NUR ---
called dr mcfadden- pt bg this morning was 99 recieved order to hold 42 units semglee insulin for today as pt has been eating poorly.
--- NOTE | 2020-09-20 09:30 | NUR ---
COMFORT CARE NOTE- PT IN LARGE AMOUNTS OF PAIN, DECLINED PAIN MEDICATION EARLIER. SPOKE TO HER ABOUT THE PAIN MEDICATION AGAIN AND THE PT IS WILLING TO TAKE A DOSE NOW SHE STATES SHE IS IN ALOT OF PAIN. PT WILL BE REPOSITIONED AFTER THE MEDICINE HAS HAD TIME TO TAKE EFFECT.
--- NOTE | 2020-09-20 11:14 | NUR ---
Comfort Care: Pt appears to be laying comfortably in bed, resting with eyes closed. Discussed with pt's nurse, Sarita. She states that pt is declining to have pain medication, even though pt would benefit from medication. Sarita has reviewed this with pt and pt has agreed to small doses of roxanol for pain prior to cares. Repositioning causes pt some discomfort. Pt was given 10mg roxanol with good results. Her pain reduced from 8/10 pain to 2/10 pain on scale. Will remain available.
--- NOTE | 2020-09-20 11:30 | NUR ---
PT MEDICATED WITH 5MG SL ROXANOL PRIOR TO REPOSITIONING PT STATED AT THE TIME OF REPOSITIONING THAT SHE DIDN'T FEEL ANY PAIN WITH THE MOVE. PT SON PRESENT AND STATED THAT THE PT WAS UNABLE TO REPOSITION YESTERDAY AND SHE SEEMS MUCH MORE IMPROVED TODAY FROM HIS VIEW WELL. PT STATES SHE IS COMFORTABLE AT THIS TIME WILL CTM.
[2020-09-20 12:52] LABS: International Normalized Ratio 2.79; Prothrombin Time Results 28.2 Sec (9.7-11.5)
--- NOTE | 2020-09-20 16:55 | NUR ---
SHIFT SUMMARY- PT HAS RECIEVED A FEW EXTRA DOSES OF PAIN MEDICATION T/O THE DAY TODAY PRIOR TO REPOSITION. PT DECLINED TO EAT MUCH TODAY. PT IS HAVING A BIT OF INCREASED CONFUSION BUT WHEN STAFF SPOKE PLAINLY SHE REORIENTED WELL. LAST REPOSITION PT STATED SHE HAD NO PAIN SO REPOSITION WAS DONE WITHOUT PREMEDICATING, PT STATED SHE HAD A MOMENT OF PAIN WITH THE REPOSITION BUT IS NOW COMFORTABLE, NO MEDS NEEDED. WILL CTM AND PASS ALL ON TO NIGHT RN IN BEDSIDE REPORT.
--- NOTE | 2020-09-20 17:28 | NUR ---
Spiritual care note: Supportive visit provided to this sweet lady. She appeared confused and thought I was someone from her past. She moved from one topic to the next, sometimes mid-sentance. Therefore conversation was disjointed, but pleasant. She tells me she is not afraid and knows she is nearing end-of-life. She loves her children very much. She declined prayer, but appeared to enjoy companionship/encouragement. She appears frail. I will remain available.
--- NOTE | 2020-09-20 20:54 | NUR ---
2041 PT CRYING OUT PAIN AND HAVING ALOT ANXIETY; ATIVAN 0.5MG CRUSHED AND MIXED IN ROXANOL 20MG AND GIVEN SL; PT REPOSITIIONED.
--- NOTE | 2020-09-21 03:18 | NUR ---
SHIFT SUMMARY: 75 Y/O FEMALE ON COMFORT CARE MEASURES; DENIES NAUSEA; REPOSITIONED Q2H, PRN; ALERT AND ORIENTED X 4; BED ALARM APPLIED, BED LOW POSITION WITH CALL LIGHT AT SIDE.
[2020-09-21 05:40] LABS: International Normalized Ratio 3.41
--- NOTE | 2020-09-21 07:23 | NUR ---
ASSUMED CARE OF PT- BEDSIDE REPORT COMPLETED WITH NIGHT RN. PER REPORT PT REQUIRED ATIVAN IN THE NIGHT. PT STATES SHE IS COMFORTABLE AT THIS TIME LAYING ON HER RIGHT SIDE. PLEASENT AND THANKED STAFF FOR CHECKING ON HER, DECLINED PO FLUIDS AT THIS TIME.
--- NOTE | 2020-09-21 09:25 | NUR ---
PT ROLLED TO BACK HIPS AND HEELS FLOATED DENIES ANY PAIN AT THIS TIME WILL CTM. SPOKE TO DR PT SBP 104 THIS MORNING ALL BP MEDS HELD PER DR ORDER. PT APPEARS COMFORTABLE AT THIS TIME. MEDS GIVEN IN APPLE SAUCE, FACE AND MOUTH WASHED.
--- NOTE | 2020-09-21 13:24 | NUR ---
pt sleeping comfortably states no pain when staff spoke to her left side lying at this time. pain med effective per pt.
--- NOTE | 2020-09-21 15:06 | NUR ---
pt resting states she feels more comfortable. and a little more appetiite. therputic time with patient.
--- NOTE | 2020-09-21 15:25 | NUR ---
PT REPOSITIONED A LITTLE WHILE AGO BY CNAS. PT SLEEPING NO S&S OF PAIN OR DISTRESS NOTED AT THIS TIME. PAIN IS WELL MANAGED PER PT STATEMENT EARLIER.
--- NOTE | 2020-09-21 18:09 | NUR ---
SHIFT SUMMARY- PT HSA BEEN MORE SLEEPY TODAY BUT SHE HAS BEEN ASKING FOR PAIN MEDICATION OCCASSIONALLY TODAY, SHE SEEMS TO BE MUCH MORE COMFORTABLE. MULTIPLE PILLOWS AND Q2 TURNS HAVE IMPROVED HER COMFORT WELL. PT TOLLERATING THE POSITION CHANGES WELL. WILL PASS ON TO NIGHT RN THAT 5MG ROXINOL PRIOR TO POSSITION CHANGES EVERY OTHER CHANGE SEEMS TO BE WORKING WELL AT THIS TIME. HER FAMILY CAME TO SEE HER AND BROUGHT SOME FRIED CHICKEN AND MASHED POTATOES. PT ATE SOME OF THAT BUT THAT WAS HER ONLY FOOD INTAKE REALLY T/O THE SHIFT.
--- NOTE | 2020-09-22 04:14 | NUR ---
SHIFT SUMMARY PATIENT IS ON COMFORT CARE HAD NO ACUTE CHANGES. AXOX 2 AND BEDREST. HAMILTON PATENT AND DRAINING TO GRAVITY. NO IV ACCESS. REPOSITIONED THROUGHOUT THE SHIFT. NO S/SX OF PAIN. CALL LIGHT IN REACH. BED IN LOWEST POSITION AND ALARM ACTIVATED. WILL CONTINUE TO MONITOR UNTIL DAY SHIFT NURSE ASSUMES CARE.
[2020-09-22 10:52] LABS: International Normalized Ratio 6.69; Prothrombin Time Results 64.3 Sec (9.7-11.5)
--- NOTE | 2020-09-22 18:01 | NUR ---
PT REMAINS ON COMFORT CARE, VISUAL HALLUCINATIONS NOTED THIS AFTERNOON. PT IS PLEASANT AND COOPERATIVE. WILL CONTINE TO MONITOR AND REPORT TO ONCOMING RN
--- NOTE | 2020-09-23 03:52 | NUR ---
SHIFT SUMMARY PATIENT BECAME ANXIOUS LATER IN THE SHIFT AND REPORTED GENERAL PAIN. PO ATIVAN 0.5 MG GIVEN PER EMAR FOR ANXIETY. ROXANOL 20 MG GIVEN FOR PAIN RELIEF. HAMILTON PATENT AND DRAINING TO GRAVITY. NO IV ACCESS. VISUAL HALLICINATIONS LATER IN SHIFT. CALL LIGHT IN REACH. BED IN LOWEST POSITION. WILL CONTINUE TO MONITOR UNTIL DAY SHIFT NURSE ASSUMES CARE.
--- NOTE | 2020-09-23 08:23 | NUR ---
DISCUSSED PT'S STATUS WITH DR NOEL.
--- NOTE | 2020-09-23 17:11 | NUR ---
DR BROWN HERE TO SEE PT.
--- NOTE | 2020-09-23 18:08 | NUR ---
SHIFT SUMMARY PT CONT TO BE ON COMFORT CARE. PT ASSISTED WITH COMFORT AND ADL'S PRN. PT FAMILY ASSISTED WITH ADL'S WHEN HERE WELL. DR TO SEE PT. PT BEEN CLEANED UP AND ASSISTED WITH REPOSITIONING BY FEMALE WATER FILTER CLEANER'S AND OTHER STAFF. BED ALARM IN PLACE.
--- NOTE | 2020-09-23 20:00 | NUR ---
COMFORT CARE PT CURRENTLY RESTING IN BED. REPOSITIONING FOR COMFORT. DENIES PAIN OR SOB. BED IN LOWEST POSITION WITH CALL LIGHT IN REACH. WILL CONTINUE TO MONITOR
--- NOTE | 2020-09-23 22:00 | NUR ---
COMFORT CARE A/OX1, PT ATTEMPTING TO GET OUT OF BED. DIFFICULT TO REDIRECT AT TIMES. PROVIDED THERAPUTIC COMMUNICATION TO HELP EASE ANXIETY. CURRENTLY SITTING UP IN BED WATCHING TV. DENIES PAIN OR SOB. BED IN LOWEST POSITION WITH CALL LIGHT IN REACH. WILL CONTINUE TO MONITOR
--- NOTE | 2020-09-24 | NUR ---
COMFORT CARE PT CURRENTLY APPEARS TO BE SLEEPING IN BED. Q2 REPOSITIONING. DENIED PAIN OR SOB AT THAT TIME. BED IN LOWEST POSITION WITH CALL LIGHT IN REACH. WILL CONTINUE TO MONITOR.
--- NOTE | 2020-09-24 02:00 | NUR ---
COMFORT CARE APPEARED TO BE SLEEPING COMFORTABLY. NO ACUTE DISTRESS NOTED. Q2 REPOSITIONING. BED IN LOWEST POSITION WITH CALL LIGHT IN REACH. WILL CONTINUE TO MONITOR
--- NOTE | 2020-09-24 04:00 | NUR ---
COMFORT CARE PT HAS APPEARED TO BE SLEEPING COMFORTABLY. Q2 REPOSITIONING COMPLETED. FLUIDS OFFERED. DENIES PAIN OR SOB. BED IN LOWEST POSITION WITH CALL LIGHT IN REACH. WILL CONTINUE TO MONITOR
--- NOTE | 2020-09-24 04:50 | NUR ---
RATE AND COST ANALYST SUMMARY PT APPEARED TO SLEEP T/O SHIFT. PT WAS ANXIOUS AND TRYING TO GET OUT OF BED DURING BEGINNING OF SHIFT BUT WAS ABLE TO BE REDIRECTED. A/O TO SELF ONLY. Q2 REPOSITIONING AND ORAL CARE COMPLETED. DENIES PAIN AND SOB. BED IN LOWEST POSITION WITH CALL LIGHT IN REACH. WILL CONTINUE TO MONITOR AND REPORT TO ONCOMING RN.
[2020-09-24 11:46] LABS: International Normalized Ratio 6.88
--- NOTE | 2020-09-24 14:40 | NUR ---
PATIENT STARTED EXPERIENCING AH/VH RE PILLS SHE THINKS SHE IS MISSING. PT ALSO CONT. TO ASK FOR HER SON. PT IS COMFORTED BY REDIRECTION AND GENTLE TOUCH/CARE. STAFF WILL CONT. TO MONITOR.
--- NOTE | 2020-09-24 18:42 | NUR ---
PT RESTING IN BED WITH CALL LIGHT WITHIN REACH. PT ALERT BUT NOT ORIENTED. PT REMAINS CONFUSED WITH VH/AH, HOWEVER CALM AND COOPERATIVE. PT AMBULATED TO CAMODE WITH 1 ASSIST AND CONSUMES 5-10 PERCENT OF HER MEALS WITH ASSISTANCE. NO IV'S AND COMFORT CARE TO CONTINUE. STAFF WILL CONT. TO MONITOR FOR CHANGES.
--- NOTE | 2020-09-24 20:00 | NUR ---
COMFORT CARE PT CURRENTLY SITTING UP IN BED. DENIES PAIN OR SOB. FLUIDS OFFERED. REPOSITIONING FOR COMFORT. BED IN LOWEST POSITION WITH CALL LIGHT IN REACH. WILL CONTINUE TO MONITOR.
--- NOTE | 2020-09-24 22:00 | NUR ---
COMFORT CARE PT CURRENTLY RESTING IN BED. REPOSITIONING Q2 FOR COMFORT. DENIED PAIN OR SOB. BED IN LOWEST POSITION WITH CALL LIGHT IN REACH. WILL CONTINUE TO MONITOR.
--- NOTE | 2020-09-25 | NUR ---
COMFORT CARE PT IS CURRENTLY RESTING COMFORTABLY IN BED. DENIES PAIN OR SOB. NO ACUTE NEEDS AT THIS TIME. BED IN LOWEST POSITION WITH CALL LIGHT IN REACH. WILL CONTINUE TO MONITOR.
--- NOTE | 2020-09-25 02:00 | NUR ---
COMFORT CARE PT RESTING IN BED COMFORTABLY AFTER REPOSITIONING COMPLETED. NO ACUTE NEEDS AT THIS TIME. DENIES PAIN OR SOB. BED IN LOWEST POSITION WITH CALL LIGHT IN REACH. WILL CONTINUE TO MONITOR.
--- NOTE | 2020-09-25 04:00 | NUR ---
COMFORT CARE PT CURRENTLY SLEPING IN BED AFTER REPOSITIONING. DENIED PAIN OR SOB. NO ACUTE NEEDS AT THIS TIME. BED IN LOWEST POSITION WITH CALL LIGHT IN REACH.
--- NOTE | 2020-09-25 04:43 | NUR ---
NUCLEAR WEAPONS MECHANICAL SPECIALIST SUMMARY A/O TO SELF AND FAMILY. APPEARED TO SLEEP T/O THE NIGHT. DENIES PAIN OR SOB. NO ACUTE CHANGES AT THIS TIME. BED IN LOWEST POSITION WITH CALL LIGHT IN REACH. WILL CONTINUE TO MONITOR AND REPORT TO ONCOMING RN.
--- NOTE | 2020-09-25 13:12 | NUR ---
PT/INR LAB ORDERED TO BE DRAWN. PATIENT, A&O X 3, REFUSED LAB DRAW.
--- NOTE | 2020-09-25 15:15 | NUR ---
Brief Pal Care comfort care visit. Pt was sound asleep and did not wake to voice. I did not note nonverbal indicators of pain, distress, restlessness at this time. I case conferenced with nursing and reviewed EMR. Pt seems to getting good relief of pain with Roxanol currently.
--- NOTE | 2020-09-25 18:22 | NUR ---
PT RESTING IN BED, BED IN LOW POSITION, ALRM ON AND CALL LIGHT WITHIN REACH. PT PAIN IS UNDER CTL AFTER PHARM/INTERVENTION PER EMAR. PT IS EXPERIENCING AH/VH BUT IS CALMED VIA GENTLE TOUCH AND COMMUNICATION. PT IS ALERT TO SELF AND FAMILY. STAFF WILL CONT. TO MONITOR FOR CHANGES.
--- NOTE | 2020-09-25 20:00 | NUR ---
COFMORT CARE PT CURRENTLY SITTING UP IN BED. PO FLUIDS GIVEN. DENIES OTHER NEEDS AT THIS TIME. BED IN LOWEST POSITION WITH CALL LIGHT IN REACH. WILL CONTINUE TO MONITOR
--- NOTE | 2020-09-26 04:13 | NUR ---
SHIFT LEADER SUMMARY A/O TO SELF AND FAMILY ONLY. APPEARED TO SLEEP T/O SHIFT. Q2 REPOSITIONING FOR COMFORT. MEDICATED FOR PAIN X1 PER EMAR. NO ACUTE CHANGES AT THIS TIME. BED IN LOWEST POSITION WITH CALL LIGHT IN REACH. WILL CONTINUE TO MONITOR AND REPORT TO ONCOMING RN.
--- NOTE | 2020-09-26 13:00 | NUR ---
Pt asking for the medicine that goes under her tounge. Anisous about pain but confussed conversation. Will review roxinol dosing today and suggest long acting narcotic. Plan is home oan hospice.
--- NOTE | 2020-09-26 14:07 | NUR ---
PATIENT SLEEPING, NOT AWAKENED TO SEE IF PAIN FREE. LOOKS COMFORTABLE
--- NOTE | 2020-09-26 15:22 | NUR ---
ALERT. SLEEPING MOST TIME WHEN RN GOES IN. MEDICATED FOR BACK PAIN WITH GOOD RESULTS.PLAN TO D'C TOMORROW TO [facility]. APPEARS COMFORTABLE. UNLABORED RESPIRATIONS. ON COMFORT CARE. JULISSA.
--- NOTE | 2020-09-26 18:00 | NUR ---
MOVED UP IN BED FOR DINNER WITH YARD COORDINATOR ASSISTING IN FEEDING. DENIES ANY PAIN.
--- NOTE | 2020-09-27 05:11 | NUR ---
SHIFT SUMMARY- PT. ON COMFORT CARE. A&O, INTERMITTENT CONFUSION. MEDICATED LAST NIGHT FOR C/O MID BACK PAIN WITH GOOD EFFECT. PT. ASLEEP MOST OF THE NIGHT, NO APPARENT DISTRESS NOTED. REPOSITIONED FOR COMFORT AND PRN. HAMILTON CATHETER PATENT AND DRAINING. NO ACUTE CHANGES TO CONDITION. CALL LIGHT WITHIN REACH AND SIDE RAILS UPX2. WILL CONT TO MONITOR.
[2020-09-27 06:26] LABS: International Normalized Ratio 2.03; Prothrombin Time Results 20.9 Sec (9.7-11.5)
--- NOTE | 2020-09-27 11:59 | NUR ---
pt resting this morning no grimace arms are not tight like usual. Goal is home on hospice.
--- NOTE | 2020-09-27 12:16 | NUR ---
ATTEMPT TO CALL [facility] TO GIVE REPORT, BUT [facility], IS IN A MEETING. PER NOTE ON CHART "REPORT BY 1400". LEFT MESSAGE WITH COMMUNITY AIDE.
--- NOTE | 2020-09-27 13:23 | NUR ---
REPORT TO [facility]. AWARE WILL BE COMING WITH [facility] WITH [facility] TO CHANGE PRN. ANSWER ALL QUESTIONS.
--- NOTE | 2020-09-27 14:31 | NUR ---
BLADDER SCAN DONE VERY LITTLE OUTPUT. 0 ML IN BLADDER. VERY LITTLE INTAKE.
--- NOTE | 2020-09-27 15:21 | NUR ---
IN [facility] TO [facility]. TEMP DONE QT 1500 AND WAS 98.4 TEMPORAL. COV NEGATIVE ON 09/16 AND 09/18
[2020-09-27] MEDS ORDERED: ASPI325 PO (16:09)
[2020-09-27] MEDS ORDERED: CITA20 PO (16:10)
[2020-09-27] MEDS ORDERED: LORA.5 PO (16:10)
[2020-09-27] MEDS ORDERED: TUMS500 MG PO (16:10)
[2020-09-27] MEDS ORDERED: MORP20L PO (16:11)
== END 2020-09-27 15:20 | disposition hospice, home (50) | DRG 65 ==
LOC: ER 20:07 → MEDS 20:08
PROVIDERS: Emergency Medicine; Internal Medicine; Pharmacist; ADMIT Family Medicine
DX: I63.81 Other cerebral infarction due to occlusion or stenosis of small artery (principal); S32.010A Wedge compression fracture of first lumbar vertebra, initial encounter for closed fracture; I65.21 Occlusion and stenosis of right carotid artery; E11.40 Type 2 diabetes mellitus with diabetic neuropathy, unspecified; E11.621 Type 2 diabetes mellitus with foot ulcer; Z20.828 Contact with and (suspected) exposure to other viral communicable diseases; Z51.5 Encounter for palliative care; E78.5 Hyperlipidemia, unspecified; F41.8 Other specified anxiety disorders; Z66 Do not resuscitate; I10 Essential (primary) hypertension; I25.10 Atherosclerotic heart disease of native coronary artery without angina pectoris; I35.0 Nonrheumatic aortic (valve) stenosis; I73.9 Peripheral vascular disease, unspecified; J44.9 Chronic obstructive pulmonary disease, unspecified; K59.00 Constipation, unspecified; R54 Age-related physical debility; R79.1 Abnormal coagulation profile; W19.XXXA Unspecified fall, initial encounter; Z95.2 Presence of prosthetic heart valve; Z79.01 Long term (current) use of anticoagulants; F01.50 Vascular dementia, unspecified severity, without behavioral disturbance, psychotic disturbance, mood disturbance, and anxiety; R63.0 Anorexia; Z68.24 Body mass index [BMI] 24.0-24.9, adult; Z74.01 Bed confinement status; G47.30 Sleep apnea, unspecified; Z87.891 Personal history of nicotine dependence; I69.312 Visuospatial deficit and spatial neglect following cerebral infarction; I69.398 Other sequelae of cerebral infarction
CPT/HCPCS: 0241U; 36415; 51701; 70450; 70496; 70498; 71045; 74177; 76700; 80048; 80053; 80061; 81001; 82947; 83036; 85025; 85610; 85730; 92610; 94640; 94760; 96374-59; 97162; 97530; 99285-25; A9270; A9270-GY; G0378; J1815; J2405; Q9967